=== PATIENT | female | born 1975 | race Two or more races ===

== ENCOUNTER 2021-05-30 07:59 | Emergency (ER) | payer OTHER ==
[~2021-05-30] VITALS: Ht 165.1 cm; Wt 61.2 kg
== END 2021-05-30 14:14 | disposition home or self-care (01) ==
LOC: ER 07:59
DX: R31.9 Hematuria, unspecified (principal)

== ENCOUNTER 2022-08-06 09:35 | Outpatient (CLI) | payer OTHER | END 2022-08-06 09:42 | disposition home or self-care (01) | LOC: RAD 09:35 | PROVIDERS: ATTEND Physical Medicine & Rehabilitation | DX: M54.50 Low back pain, unspecified (principal); M51.26 Other intervertebral disc displacement, lumbar region; R22.41 Localized swelling, mass and lump, right lower limb ==

== ENCOUNTER 2023-11-09 07:16 | Emergency (ER) | payer OTHER ==
[~2023-11-09] VITALS: Ht 165.1 cm; Wt 63.5 kg
[2023-11-09] MEDS ORDERED: HYOSCYAMINE SULFATE 0.125 MG TAB.SUBL SL ONE (08:15)
[2023-11-09] MEDS ORDERED: 0.9 % SODIUM CHLORIDE 1,000 ML IV ONE (08:15)
[2023-11-09] MEDS ORDERED: MEPERIDINE HCL/PF 50 MG/ML VIAL IM ONE (08:15)
[2023-11-09] MEDS ORDERED: PROMETHAZINE HCL 50 MG/ML AMPUL IM ONE (08:15)
[2023-11-09] MEDS ORDERED: TAMSULOSIN HCL 0.4 MG CAP PO ONE (08:15)
[2023-11-09 08:47] LABS: HEMATOCRIT 39.5 % (36.0-45.00); HEMOGLOBIN 13.5 g/dL (12.0-15.00); MEAN CELL VOLUME 87.7 fL (80.00-100.00); MEAN CORPUSCULAR HGB CONC 34.2 g/dl (32.0-36.0); PLATELET COUNT 256 K/uL (150-450); RED BLOOD COUNT 4.51 M/uL (4.00-6.00); RED CELL DISTRIBUTION WIDTH 13.3 % (11.5-14.5)
[2023-11-09 09:04] LABS: INR 1.04; PARTIAL THROMBOPLASTIN TIME 23.6 SECONDS (22.0-34.0); PROTHROMBIN TIME 10.9 SECONDS (9.0-11.5)
[2023-11-09 09:26] LABS: ALBUMIN 4.1 gm/dL (3.4-5.0); BILIRUBIN TOTAL 1.04 mg/dL (0.3-1.2); CALCIUM 9.9 mg/dL (8.5-10.1); CREATININE SERUM 1.01 mg/dL (0.55-1.02); GFR 58.26; GLOBULINA 2.8 G/DL (2.4-3.5); POTASSIUM 4.05 mEq/L (3.5-5.1); TOTAL PROTEIN 6.9 gm/dL (6.4-8.2)
[2023-11-09] MEDS ORDERED: ONDANSETRON HCL 2 MG/ML VIAL IV ONE (12:00)
[2023-11-09] MEDS ORDERED: KETOROLAC TROMETHAMINE 30 MG VIAL IV ONE (14:15)
== END 2023-11-09 14:50 | disposition home or self-care (01) ==
LOC: ER 07:16
PROVIDERS: General Practice
DX: R10.9 Unspecified abdominal pain (principal)
CPT/HCPCS: 36415; 74177; 76830; Q9965